=== PATIENT | female | born 1990 | race Caucasian/White ===

== ENCOUNTER 2021-12-03 20:33 | Emergency (ER) | payer BC, OTHER ==
[2021-12-03] MEDS ORDERED: Famotidine 20 MG/2 ML SDV IVPUSH ONE (21:39)
[2021-12-03] MEDS ORDERED: Alum Hydro/Mag Hydro/Simeth XS 15 ML, Metoclopramide 5 MG, Lidocaine 2% 5 ML PO ONE ×3 (21:39)
[2021-12-03 22:38] LABS: BLOOD UREA NITROGEN,BUN 8 mg/dL (7.0-18.0); CARBON DIOXIDE,CO2 25.6 mmol/L (21.0-32.0); CHLORIDE,CL 103 mmol/L (98-107); GLUCOSE RANDOM 112 mg/dL (74-106); LIPASE 85 U/L (73-393); POTASSIUM,K 3.5 mmol/L (3.5-5.1); SODIUM,NA 137 mmol/L (136-145)
[2021-12-03] MEDS ORDERED: Iopamidol 755 MG/ML 500 ML Multipack Bottle IVPUSH ONE (22:47)
[2021-12-03] MEDS ORDERED: Lidocaine 1% with EPINEPHrine 1:100,000 10 ML MDV INJECT ONE (23:29)
[2021-12-03] MEDS ORDERED: Lidocaine 1% 5 ML VIAL ONE (23:32)
[2021-12-04] MEDS ORDERED: Lidocaine 1% 5 ML VIAL INJECT ONE (00:40)
== END 2021-12-04 01:06 | disposition home or self-care (01) ==
LOC: MW.ED 20:33
DX: R07.9 Chest pain, unspecified (principal); R13.10 Dysphagia, unspecified; Z88.0 Allergy status to penicillin; Z79.899 Other long term (current) drug therapy
CPT/HCPCS: 36415; 71275; 80053; 83690; 84484; 84703; 85025; 85379; 93005; 96374; 96375; 99285; A9270; J3360; J3490; Q9967

== ENCOUNTER 2022-01-14 06:27 | Day surgery (SDC) | payer OTHER ==
[~2022-01-14 06:27] MED LIST: Lactated Ringers 1,000 ML IV SCH
[2022-01-14] MEDS ORDERED: Lidocaine 1% 5 ML VIAL ONE (07:15)
[2022-01-14] MEDS ORDERED: Propofol 200 MG/20 ML SDV ONE (07:15)
[2022-01-14] MEDS ORDERED: fentaNYL 100 MCG/2 ML SDV ONE (07:15)
[2022-01-14] MEDS ORDERED: Lactated Ringers 1,000 ML IV SCH (08:15)
== END 2022-01-14 08:45 | disposition home or self-care (01) ==
LOC: MW.SDS 06:27
PROVIDERS: ATTEND Surgery
DX: K20.90 Esophagitis, unspecified without bleeding (principal); K29.70 Gastritis, unspecified, without bleeding; J45.909 Unspecified asthma, uncomplicated; F41.9 Anxiety disorder, unspecified; Z78.9 Other specified health status; E66.9 Obesity, unspecified; Z68.35 Body mass index [BMI] 35.0-35.9, adult; Z98.890 Other specified postprocedural states; Z88.0 Allergy status to penicillin; Z91.048 Other nonmedicinal substance allergy status; Z79.899 Other long term (current) drug therapy; Z79.51 Long term (current) use of inhaled steroids; Z80.0 Family history of malignant neoplasm of digestive organs
CPT/HCPCS: 00731; 81025; J2704; J3010; J7120